=== PATIENT | male | born 1985 | race Caucasian/White ===

== ENCOUNTER 2018-07-22 11:13 | Emergency (ER) | payer OTHER ==
[~2018-07-22] VITALS: Ht 172.7 cm; Wt 77.1 kg
[2018-07-22] MEDS ORDERED: NACL 0.9% 1,000 ML IV ONE (11:18)
[2018-07-22 11:25] VITALS: BP_SYST 117
[2018-07-22] MEDS ORDERED: KETOROLAC TROMETHAMINE 30 MG VIAL IVP ONE (11:30)
[2018-07-22 12:06] LABS: BILIRUBIN,URINE NEGATIVE (NEGATIVE); BLOOD, URINE TRACE (NEGATIVE); CLARITY/URINE CLEAR (CLEAR); COLOR,URINE YELLOW (YELLOW); GLUCOSE,URINE NEGATIVE (NEGATIVE); KETONES,URINE NEGATIVE (NEGATIVE); LEUKOCYTE ESTERASE ,URINE 1+ (NEGATIVE); NITRITE, URINE NEGATIVE (NEGATIVE); PROTEIN URINE NEGATIVE (NEGATIVE); UROBILINOGEN,URINE 0.2 (0.2-1.0)
[2018-07-22 12:07] LABS: HEMOGLOBIN 15.8 g/dL (14.0-18.0); MEAN CORPUSCULAR HEMOGLOBIN 33 pg (27-31); MEAN CORPUSCULAR HGB CONC 34 % (32-36); MEAN CORPUSCULAR VOLUME 96 fL (79.0-98.0); PLATELET COUNT (AUTO) 419 K/uL (130-430); RED BLOOD CELL COUNT(AUTO) 4.77 MIL/uL (4.2-6.2); RED CELL DISTRIBUTION WIDTH 12.3 % (9.0-15.0); WHITE BLOOD COUNT (AUTO) 7.8 K/uL (4.8-10.8)
[2018-07-22 12:08] LABS: BASOPHILS % (AUTO) 0.6 % (0.0-2.0); EOSINOPHILS # (AUTO) 0.1 K/uL (0.0-0.4); EOSINOPHILS % (AUTO) 0.9 % (0.0-4.0); LYMPHOCYTES # (AUTO) 2.4 K/uL (1.0-5.5); LYMPHOCYTES % (AUTO) 31.4 % (20.5-51.5); MONOCYTES # (AUTO) 0.6 K/uL (0.0-1.0); MONOCYTES % (AUTO) 7.5 % (1.7-9.3); NEUTROPHILS # (AUTO) 4.6 K/uL (1.8-7.7); NEUTROPHILS % (AUTO) 59.6 % (40.0-70.0)
[2018-07-22 12:14] LABS: CREATININE 0.83 mg/dL (0.55-1.30); POTASSIUM 4.1 mmol/L (3.5-5.1)
[2018-07-22 12:19] LABS: ALBUMIN 4.3 g/dL (3.4-4.8); TOTAL BILIRUBIN 0.8 mg/dL (0.0-1.0)
[2018-07-22 12:29] LABS: BACTERIA,URINE FEW /HPF (None Seen); MUCUS,URINE None Seen /LPF (None Seen); RBC,URINE 0-3 /HPF (0-3); YEAST,URINE None Seen /HPF (None Seen)
[2018-07-22 12:49] VITALS: BP_SYST 115
[2018-07-22] MEDS ORDERED: FUROSEMIDE 40 MG/4 ML VIAL ONE (14:21)
[2018-07-24 08:22] LABS: CHLAMYDIA TRACHOMATIS NAA Negative (Negative); NEISSERIA GONORRHOEAE NAA Negative (Negative)
== END 2018-07-22 12:52 | disposition home or self-care (01) ==
LOC: SED 11:13
DX: N39.0 Urinary tract infection, site not specified (principal); R30.0 Dysuria; Z11.3 Encounter for screening for infections with a predominantly sexual mode of transmission; I48.91 Unspecified atrial fibrillation
CPT/HCPCS: 36415; 80053; 81000; 82150; 83690; 85025; 85610; 85730; 87491; 87591; 99283; J1940

== ENCOUNTER 2018-08-15 12:55 | Emergency (ER) | payer OTHER ==
[~2018-08-15] VITALS: Ht 170.2 cm; Wt 79.4 kg
[2018-08-15 12:55] VITALS: BP_SYST 138
--- NOTE | 2018-08-15 12:55 | NUR ---
BROUGHT BACK TO BED #8 AND TRIAGED. REPORT GIVEN TO LI
--- NOTE | 2018-08-15 13:00 | NUR ---
ER Dr. COX at bedside examining patient.
--- NOTE | 2018-08-15 13:05 | NUR ---
PATIENT SITTING UP ON BED. AAOx4. RESPIRATIONS EVEN AND UNLABORED. NO SOB. DENIES OF ANY CHEST PAIN. PATIENT IN NO ACUTE DISTRESS. PATIENT WITH C/O LEFT GREATER TOE PAIN x TODAY. PT STATES THAT HE WAS OPENING THE SLIDING DOOR AND THE DOOR RAN OVER HIS LEFT GREATER TOE. TOE PAIN = 8/10; NO OBJECTIVE S/SX OF PAIN OBSERVED. LEFT GREATER TOE NAIL NOTED WITH A SLIGHT CHIP AND LACERATION MEASURING 0.7CM. NO ACTIVE BLEEING NOTED. REST AND RELAXATION ENCOURAGED. ICE PACK OFFERED FOR PAIN, BUT PT REFUSED. WILL CONTINUE TO MONITOR. AWAITING MD ORDERS.
--- NOTE | 2018-08-15 13:10 | NUR ---
LEFT GREATER TOE LACERATION CLEANSED WITH NS, PAT DRIED, AND LEFT OPEN TO AIR BY DON WESTON. TOLERATED WELL. PATIENT EDUCATED ON S/SX OF INFECTION AND INSTRUCTED TO SEEK MEDICAL ATTENTION IF PRESENT. PATIENT VERNALIZED UNDERSTANDING.
--- NOTE | 2018-08-15 13:15 | NUR ---
RADIOLOGY AT BEDSIDE FOR X-RAYS.
--- NOTE | 2018-08-15 13:40 | NUR ---
LEFT GREATER TOE COVERED WITH A DRY DRESSING BY DON WESTON. TOLERATED WELL. NO ACTIVE BLEEDING NOTED.
[2018-08-15 13:45] VITALS: BP_SYST 135
--- NOTE | 2018-08-15 13:45 | NUR ---
Patient given written and verbal discharge instructions and verbalizes understanding. ER MD discussed with patient the results and treatment provided. Patient in stable condition. ID arm band removed. Rx of CLINDAMYCIN given. Patient educated on pain management and to follow up with PMD. Pain Scale 6/10; TOLERABLE VERBALIZED. NO OBJECTIVE S/SX OF PAIN OBSERVED. Opportunity for questions provided and answered. Medication side effect fact sheet provided. PATIENT IN NO ACUTE DISTRESS AND IN GOOD CONDITION. PATIENT NOTED WITH A STEADY GAIT.
== END 2018-08-15 13:45 | disposition home or self-care (01) ==
LOC: SED 12:55
DX: S90.112A Contusion of left great toe without damage to nail, initial encounter (principal); R03.0 Elevated blood-pressure reading, without diagnosis of hypertension; I48.91 Unspecified atrial fibrillation; W23.0XXA Caught, crushed, jammed, or pinched between moving objects, initial encounter; Y93.89 Activity, other specified; Y92.89 Other specified places as the place of occurrence of the external cause; Y99.8 Other external cause status
CPT/HCPCS: 99283

== ENCOUNTER 2018-08-17 15:51 | Emergency (ER) | payer OTHER ==
[~2018-08-17] VITALS: Ht 170.2 cm; Wt 79.4 kg
[2018-08-17 15:59] VITALS: BP_SYST 135
[2018-08-17] MEDS ORDERED: LORazepam 1 MG TABLET PO ONE (17:15)
[2018-08-17 18:05] VITALS: BP_SYST 127
== END 2018-08-17 18:07 | disposition home or self-care (01) ==
LOC: SED 15:51
DX: F41.9 Anxiety disorder, unspecified (principal); I48.91 Unspecified atrial fibrillation; M62.838 Other muscle spasm; R03.0 Elevated blood-pressure reading, without diagnosis of hypertension
CPT/HCPCS: 93005; 99284